=== PATIENT | male | born 1980 | race Caucasian/White ===

== ENCOUNTER 2023-11-26 10:08 | Day surgery (SDC) | payer OTHER, SELFPAY ==
[2023-11-26] VITALS (14 sets, daily range): BP systolic 112–130; BP diastolic 75–83; BMI 30.6
[2023-11-26] MEDS: LOW STRENGTH ASPIRIN 324 MG PO (11:04)
[2023-11-26] MEDS: NSS 290 ML IV (11:07)
--- NOTE | 2023-11-26 13:33 | ITS.CL.CATH ---
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
Cardiac Catheterization
Procedure Report:
CARDIAC CATHETERIZATION REPORT
Date of Procedure: 11/26/2023
Referring: Benedicto Hill MD
Indication: Recent onset angina with numerous cardiac risk factors
�
HEMODYNAMIC DATA
AO: 123/75
LV: 123/12
�
LEFT VENTRICULOGRAPHY: Normal left ventricular wall motion with EF 62%
�
CORONARY ANGIOGRAPHY
Dominance: Right
Left Main: Normal
LAD: Normal
Circumflex: Normal
RCA: Normal dominant vessel
�
Closure Device: None-the procedure was performed via the right radial artery. The Adryan's test was normal prior to the procedure.
�
Radiation (mGy): 295
DAP (cm2.Gy): 22.7
Fluoroscopy time: 4.7 minutes
�
CONCLUSIONS
1:�Normal left ventricular function with EF 62%
2:�Normal coronary arteries
3. In light of the normal angiogram, his symptoms are most likely related to gastroesophageal reflux. We have recommended [id number] omeprazole 20 mg daily. Consider GI evaluation if symptoms persist
�
�
Copy to: Benedicto Hill MD, Ivonne Rios MD
�
González Perry MD, [facility]
== END 2023-11-26 17:00 | disposition home or self-care (01) ==
LOC: CATH 10:08
PROVIDERS: ATTENDING PHYSICIAN Internal Medicine Cardiovascular Disease; FAMILY PHYSICIAN Internal Medicine; OTHER PHYSICIAN Internal Medicine Cardiovascular Disease
DX: R07.89 Other chest pain (principal); R94.31 Abnormal electrocardiogram [ECG] [EKG]; E78.5 Hyperlipidemia, unspecified; Z82.49 Family history of ischemic heart disease and other diseases of the circulatory system; Z79.82 Long term (current) use of aspirin; Z79.899 Other long term (current) drug therapy
CPT/HCPCS: 93458; C1894; Q9967